=== PATIENT | female | born 1980 | race Caucasian/White ===

== ENCOUNTER 2017-04-25 15:24 | Emergency (ER) | payer SELFPAY ==
[2017-04-25 15:28] VITALS: BP 126/73; BMI 31.3
[2017-04-25 15:57] LABS: BILIRUBIN,URINE NEGATIVE (NEGATIVE); BLOOD/HEMOGLOBIN,URINE 1+ (NEGATIVE); GLUCOSE, URINE NEGATIVE (NEGATIVE); KETONES,URINE NEGATIVE (NEGATIVE); LEUKOCYTE ESTERASE ,URINE 1+ (NEGATIVE); NITRITES,URINE NEGATIVE (NEGATIVE); PROTEIN,URINE NEGATIVE (NEGATIVE); UROBILINOGEN,URINE NORMAL (NORMAL)
[2017-04-25 16:01] LABS: APPEARANCE,URINE HAZY (CLEAR); BACTERIA,URINE TRACE /HPF (NEGATIVE); COLOR,URINE YELLOW (YELLOW); RBC,URINE 0-2 /HPF (NEGATIVE); SQUAMOUS EPITHELIAL CELL,UR NEGATIVE /HPF (NEGATIVE)
[2017-04-25] MEDS ORDERED: TORADOL 60 MG VIAL IM ONE (16:05)
--- NOTE | 2017-04-25 16:05 | DR.FBACK ---
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 She had been off work for three months. Chief Complaint:: PT. C/O RIGHT LOWER BACK PAIN THAT IS SHARP IN NATURE. PAIN BEGAN THIS MORNING. 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, Tonsillectomy Past Surgical History Comment: TUBAL LIGATION, D&C - Family History History of Family Medical Conditions: No - Social History Does patient currently use any type of tobacco product: No Have you used tobacco products in the last 12 months: No Type of Tobacco Use: None Does any household member use tobacco: No Alcohol Use: None Do you use any recreational Drugs:: No Lives With: Family Lives Where: Home - infectious screening In the last 2 months have you had wt loss of >10#?: NO Have you had fever, night sweats or hemotysis?: No Have you traveled outside the country in the last 6 months?: No Isolation: Standard PE - Vitals Vital Signs: Temp Pulse Resp BP Pulse Ox 04/25/17 15:25 98.2 F 92 H 17 126/73 100 11/08/16 12:29 109/66 ROR - Labs Reviewed Laboratory: Specimen Type Clean catch urine 04/25/17 15:47 Urine Color Yellow (YELLOW) 04/25/17 15:47 Urine Appearance Hazy (CLEAR) 04/25/17 15:47 Urine pH 5.0 (5.0 - 8.0) 04/25/17 15:47 Ur Specific [place] 1.025 (1.000-1.030) 04/25/17 15:47 Urine Protein Negative (NEGATIVE) 04/25/17 15:47 Urine Glucose (UA) Negative (NEGATIVE) 04/25/17 15:47 Urine Ketones Negative (NEGATIVE) 04/25/17 15:47 Urine Occult Blood 1+ (NEGATIVE) 04/25/17 15:47 Urine Nitrite Negative (NEGATIVE) 04/25/17 15:47 Urine Bilirubin Negative (NEGATIVE) 04/25/17 15:47 Urine Urobilinogen Normal (NORMAL) 04/25/17 15:47 Ur Leukocyte Esterase 1+ (NEGATIVE) 04/25/17 15:47 Urine RBC 0-2 /HPF (NEGATIVE) 04/25/17 15:47 Urine WBC 0-2 /HPF (NEGATIVE) 04/25/17 15:47 Ur Squamous Epith Cells Negative /HPF (NEGATIVE) 04/25/17 15:47 Urine Bacteria Trace /HPF (NEGATIVE) 04/25/17 15:47 Ur Culture Indicated? No/not indicated 04/25/17 15:47 - Other Results Comments: UA: negative - Diagnosis Discharge Problem: Spasm of muscle, back - Discharge Plan Condition: Stable - Follow ups/Referrals Follow ups/Referrals: NFD,None [Primary Care Provider] - 3 days - Instructions
[2017-04-25] MEDS ORDERED: TORADOL 60 MG VIAL ONE (16:08)
== END 2017-04-25 16:36 | disposition home or self-care (01) ==
LOC: ER 15:39
DX: M62.830 Muscle spasm of back (principal)
CPT/HCPCS: 81001; 96372; 99282; J1885

== ENCOUNTER 2017-05-01 12:47 | Emergency (ER) | payer SELFPAY ==
[2017-05-01 12:52] VITALS: BP 127/68; BMI 31.3
--- NOTE | 2017-05-01 13:35 | DR.GENAD ---
HPI - PCP Primary Care Physician: MATT - HPI Comment HPI Comment: SEEN IN ED . CONTINUE TO HURT. NO DYSURIA. NO HEMATURIA. NO TRAUMA. PAIN RADIATE TO RIGHT LEG. - Complaint/Symptoms Chief Complaint Doctors Comments: LOWER BACK AND RIGHT FLANK PAIN TIMES ONE WEEK. 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 SANDER Surgery, Tonsillectomy Past Surgical History Comment: TUBALIGATION - Family History History of Family Medical Conditions: No - Social History Does any household member use tobacco: No Alcohol Use: None Do you use any recreational Drugs:: No Lives With: Family Lives Where: Home - infectious screening In the last 2 months have you had wt loss of >10#?: NO Have you had fever, night sweats or hemotysis?: No Have you traveled outside the country in the last 6 months?: No Isolation: Standard ROS - Review of Systems Constitutional: No Symptoms Reported Eyes: No Symptoms Reported ENTM: No Symptoms Reported Respiratoy: No Symptoms Reported Cardiovascular: No Symptoms Reported Gastrointestinal/Abdominal: No Symptoms Reported Genitourinary: No Symptoms Reported Neurological: No Symptoms Reported Musculoskeletal: Muscle Pain, Right, Leg Integumentary: No Symptoms Reported Hematologic/Lymphatic: No Symptoms Reported Endocrine: No Symptoms Reported All Other Systems: Reviewed and Negative PE - Vital Signs Vitals: Temperature 98.8 F Pulse Rate 72 Respiratory Rate 20 Blood Pressure 127/68 O2 Sat by Pulse Oximetry 100 - General Limitations: No Limitations General Appearance: Alert - Head Head Exam: Normal Inspection - Eyes Eye exam: Normal Appearance - ENT ENT Exam: Normal External Ear Exam External Ear Exam: Normal External Inspection TM/Canal Exam: Bilateral Normal Nose Exam: Normal Nose Exam Mouth Exam: Normal Inspection Throat Exam: Normal Inspection - Neck Neck Exam: Trachea Midline - Chest Chest Inspection: Symmetric Chest Wall Rise - Respiratory Respiratory Exam: Normal Lung Sounds Bilat Respiratory Exam: Bilateral Clear to Auscultation - Cardiovascular Cardiovascular Exam: Regular Rate, Normal Rhythm, Normal Heart Sounds - Abdominal Exam Abdominal Exam: Normal Bowel Sounds, Soft. negative: Tenderness - Extremities Extremities Exam: Normal Inspection - Back Back Exam: Normal Inspection - Neurologic Neurological Exam: Alert, Oriented X3 - Psychiatric Psychiatric Exam: Normal Affect, Normal Mood - Skin Skin Exam: Normal Color MDM - Differential Diagnosis Differential Diagnosis: LOWER BACK PAIN, RT FLANK PAIN Course - Treatment Treatment: SEE ORDERS. - Education/Counseling Education/Counseling: Patient, Education Educated On: Diagnosis, Needs for Follow Up ROR - Labs Reviewed Laboratory Results Reviewed?: Yes Laboratory: Specimen Type Clean catch urine 05/01/17 13:38 Urine Color Yellow (YELLOW) 05/01/17 13:38 Urine Appearance Slightly hazy (CLEAR) 05/01/17 13:38 Urine pH 6.0 (5.0 - 8.0) 05/01/17 13:38 Ur Specific [place] 1.020 (1.000-1.030) 05/01/17 13:38 Urine Protein 1+ (NEGATIVE) 05/01/17 13:38 Urine Glucose (UA) Negative (NEGATIVE) 05/01/17 13:38 Urine Ketones Negative (NEGATIVE) 05/01/17 13:38 Urine Occult Blood 5+ (NEGATIVE) 05/01/17 13:38 Urine Nitrite Negative (NEGATIVE) 05/01/17 13:38 Urine Bilirubin Negative (NEGATIVE) 05/01/17 13:38 Urine Urobilinogen Normal (NORMAL) 05/01/17 13:38 Ur Leukocyte Esterase 1+ (NEGATIVE) 05/01/17 13:38 Urine RBC 35-40 /HPF (NEGATIVE) 05/01/17 13:38 Urine WBC 0-2 /HPF (NEGATIVE) 05/01/17 13:38 Ur Squamous Epith Cells Few /HPF (NEGATIVE) 05/01/17 13:38 Urine Bacteria Trace /HPF (NEGATIVE) 05/01/17 13:38 Ur Culture Indicated? No/not indicated 05/01/17 13:38 - XRAY XRAY Interpreted by: Radiologist XRAY Findings: REPORT DISCUSS WITH PATIENT. - Diagnosis Discharge Problem: Right flank pain Lower back pain Qualifiers: Chronicity: acute Back pain laterality: right Sciatica presence: with sciatica Sciatica laterality: sciatica of right side Qualified Code(s): M54.41 - Lumbago with sciatica, right side - Discharge Plan Disposition: HOME, SELF-CARE Condition: Stable Prescriptions: Cyclobenzaprine HCl [FLEXERIL 10 MG *] 10 mg PO TID #20 tab Meloxicam [Mobic Tab 15 mg] 15 mg PO DAILY #20 tab - Follow ups/Referrals Follow ups/Referrals: NFD,None [Primary Care Provider] - 1 day Sidney Chan [STAFF PHYSICIAN] - 1 day - Instructions Instructions: Back Pain, Adult, [id number], Sciatica Additional Instructions: RETURN TO ED IF WORSE.
[2017-05-01 13:50] LABS: BILIRUBIN,URINE NEGATIVE (NEGATIVE); BLOOD/HEMOGLOBIN,URINE 5+ (NEGATIVE); GLUCOSE, URINE NEGATIVE (NEGATIVE); KETONES,URINE NEGATIVE (NEGATIVE); LEUKOCYTE ESTERASE ,URINE 1+ (NEGATIVE); NITRITES,URINE NEGATIVE (NEGATIVE); PROTEIN,URINE 1+ (NEGATIVE); UROBILINOGEN,URINE NORMAL (NORMAL)
[2017-05-01 13:57] LABS: APPEARANCE,URINE SLIGHTLY HAZY (CLEAR); BACTERIA,URINE TRACE /HPF (NEGATIVE); COLOR,URINE YELLOW (YELLOW); RBC,URINE 35-40 /HPF (NEGATIVE); SQUAMOUS EPITHELIAL CELL,UR FEW /HPF (NEGATIVE)
--- NOTE | 2017-05-01 14:33 | CT ---
HISTORY: Right flank pain Study: CT abdomen pelvis without contrast Comparison: None Technique: Axial non contrast images with coronal and sagittal reformats. Dose reduction procedures were use with MA/kv adjusted for body size. Findings: The lung bases are clear. The liver, spleen, adrenal glands, and pancreas are within normal limits t o the limitations of an unenhanced examination. Patient is status post cholecystectomy. The kidneys are unobstructed and without stones. No ureteral calculi are identified . the appendix is normal. Th ere are no findings suggestive of diverticulitis or colitis. No enlarged intraperitoneal or retroper itoneal lymphadenopathy is identified. Examination of the pelvis demonstrated no evidence for pelvic masses, pelvic fluid, or pelvic lymphadenopathy. No bladder abnormality is identified. No lytic or blastic skeletal lesions are identified. IMPRESSION: No evidence for obstructing renal or ureteral calculi Normal appendix No significant abnormality on unenhanced examination Reported By:
== END 2017-05-01 15:37 | disposition home or self-care (01) ==
LOC: ER 13:12
DX: R10.84 Generalized abdominal pain (principal); M54.41 Lumbago with sciatica, right side
CPT/HCPCS: 74176; 81001; 99282

== ENCOUNTER 2017-11-09 14:59 | Emergency (ER) | payer SELFPAY ==
[2017-11-09 15:03] VITALS: BP 123/72; BMI 34.3
--- NOTE | 2017-11-09 16:24 | DR.GENAD ---
HPI - PCP Primary Care Physician: NFD - Complaint/Symptoms Chief Complaint Doctors Comments: Patient presents with compolaint of body aches and headache onset two days ago. 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 Past Surgical History Comment: TUBAL LIGATION;EAR SURGERY, - Family History History of Family Medical Conditions: No - Social History Does patient currently use any type of tobacco product: No Have you used tobacco products in the last 12 months: No Type of Tobacco Use: None Does any household member use tobacco: No Alcohol Use: None Do you use any recreational Drugs:: No Lives With: Family Lives Where: Home - infectious screening In the last 2 months have you had wt loss of >10#?: NO Have you had fever, night sweats or hemotysis?: No Have you traveled outside the country in the last 6 months?: No Isolation: Standard ROS - Review of Systems Eyes: No Symptoms Reported ENTM: No Symptoms Reported Respiratoy: No Symptoms Reported Cardiovascular: No Symptoms Reported Gastrointestinal/Abdominal: No Symptoms Reported Genitourinary: No Symptoms Reported Neurological: No Symptoms Reported Musculoskeletal: No Symptoms Reported Integumentary: No Symptoms Reported Hematologic/Lymphatic: No Symptoms Reported Endocrine: No Symptoms Reported Psychiatric: No Symptoms Reported All Other Systems: Reviewed and Negative PE - Vital Signs Vitals: Temperature 97.6 F Pulse Rate 97 Respiratory Rate 20 Blood Pressure 123/72 O2 Sat by Pulse Oximetry 98 - General Limitations: No Limitations General Appearance: Alert, In No Apparent Distress - Head Head Exam: Normal Inspection, Atraumatic - Eyes Eye exam: Normal Appearance, PERRL, EOMI - ENT ENT Exam: Normal Exam External Ear Exam: Normal External Inspection TM/Canal Exam: Bilateral Normal Nose Exam: Normal Nose Exam Mouth Exam: Normal Inspection Throat Exam: Normal Inspection - Neck Neck Exam: Normal Inspection, Full ROM - Chest Chest Inspection: Normal Inspection - Respiratory Respiratory Exam: Normal Lung Sounds Bilat Respiratory Exam: Bilateral Clear to Auscultation - Cardiovascular Cardiovascular Exam: Regular Rate, Normal Rhythm - Abdominal Exam Abdominal Exam: Normal Inspection, Normal Bowel Sounds Abdominal Tenderness: negative: RUQ, RLQ, LUQ, LLQ, Epigastrium, Suprapubic, Diffuse, Mild, Moderate, Severe, Other - Extremities Extremities Exam: Normal Inspection, Full ROM - Back Back Exam: Normal Inspection, Full ROM - Neurologic Neurological Exam: Alert, Oriented X3, CN II-XII Intact - Psychiatric Psychiatric Exam: Normal Affect, Normal Mood - Skin Skin Exam: Warm, Dry, Intact ROR - Labs Reviewed Laboratory Results Reviewed?: Yes (influenza negative) Laboratory: Influenza Type A (PCR) Negative (NEGATIVE) 11/09/17 15:57 Influenza Type B (PCR) Negative (NEGATIVE) 11/09/17 15:57 - Diagnosis Discharge Problem: URI (upper respiratory infection) Qualifiers: URI type: unspecified viral URI Qualified Code(s): J06.9 - Acute upper respiratory infection, unspecified - Discharge Plan Condition: Stable - Follow ups/Referrals Follow ups/Referrals: NFD,None [Primary Care Provider] - 3 days - Instructions
== END 2017-11-09 17:17 | disposition home or self-care (01) ==
LOC: ER 15:09
DX: J06.9 Acute upper respiratory infection, unspecified (principal)
CPT/HCPCS: 87502; 99282

== ENCOUNTER 2018-02-25 09:03 | Emergency (ER) | payer OTHER ==
[2018-02-25 09:10] VITALS: BP 109/55; BMI 35.3
[2018-02-25] MEDS ORDERED: TORADOL 60 MG VIAL IM ONE (12:12)
[2018-02-25] MEDS ORDERED: TORADOL 60 MG VIAL ONE (12:12)
--- NOTE | 2018-02-25 12:12 | DR.GENAD ---
HPI - PCP Primary Care Physician: none - Complaint/Symptoms Chief Complaint Doctors Comments: Patient was going down a stair way at work tripped and hit left knee of metal stair. 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: No Isolation: Standard ROS - Review of Systems Eyes: No Symptoms Reported ENTM: No Symptoms Reported Respiratoy: No Symptoms Reported Cardiovascular: No Symptoms Reported Gastrointestinal/Abdominal: No Symptoms Reported Genitourinary: No Symptoms Reported Neurological: No Symptoms Reported Musculoskeletal: No Symptoms Reported Integumentary: No Symptoms Reported Hematologic/Lymphatic: No Symptoms Reported Endocrine: No Symptoms Reported Psychiatric: No Symptoms Reported All Other Systems: Reviewed and Negative PE - Vital Signs Vitals: Temperature 97.5 F Pulse Rate 70 Respiratory Rate 18 Blood Pressure 109/55 O2 Sat by Pulse Oximetry 99 - General Limitations: No Limitations General Appearance: Alert, In No Apparent Distress - Head Head Exam: Normal Inspection, Atraumatic - Eyes Eye exam: Normal Appearance, PERRL, EOMI - ENT ENT Exam: Normal Exam External Ear Exam: Normal External Inspection TM/Canal Exam: Bilateral Normal Nose Exam: Normal Nose Exam Mouth Exam: Normal Inspection Throat Exam: Normal Inspection - Neck Neck Exam: Normal Inspection - Chest Chest Inspection: Normal Inspection - Respiratory Respiratory Exam: Normal Lung Sounds Bilat Respiratory Exam: Bilateral Clear to Auscultation - Cardiovascular Cardiovascular Exam: Regular Rate - Abdominal Exam Abdominal Exam: Normal Inspection, Normal Bowel Sounds Abdominal Tenderness: negative: RUQ, RLQ, LUQ, LLQ, Epigastrium, Suprapubic, Diffuse, Mild, Moderate, Severe, Other - Extremities Extremities Exam: Other (left knee abrasion of the patella) - Back Back Exam: Normal Inspection, Full ROM - Neurologic Neurological Exam: Alert, Oriented X3, CN II-XII Intact - Psychiatric Psychiatric Exam: Normal Affect - Skin Skin Exam: Warm, Dry, Intact Course - Education/Counseling Educated On: Treatment, Diagnosis, Prognosis ROR - XRAY XRAY Interpreted by: Radiologist (Left Knee: No acute or significant injury demonstrated.) - Diagnosis Discharge Problem: Contusion of left knee Qualifiers: Encounter type: initial encounter Qualified Code(s): S80.02XA - Contusion of left knee, initial encounter - Discharge Plan Condition: Stable - Follow ups/Referrals Follow ups/Referrals: NFD,None [Primary Care Provider] - 3 days - Instructions
--- NOTE | 2018-02-25 12:30 | RAD ---
Examination: Portable left knee, two views History: Trauma Findings: AP and oblique views demonstrate no evidence for fracture or dislocation. There is no obvio us synovial effusion. Joint spaces are maintained. A true lateral view is not available. Impression: No acute or significant injury demonstrated. Reported By:
== END 2018-02-25 13:20 | disposition home or self-care (01) ==
LOC: ER 09:33
DX: S80.02XA Contusion of left knee, initial encounter (principal); W18.49XA Other slipping, tripping and stumbling without falling, initial encounter; Y92.69 Other specified industrial and construction area as the place of occurrence of the external cause
CPT/HCPCS: 29530; 73560; 96372; 99282; J1885